=== PATIENT | female | born 1950 | race Caucasian/White ===

== ENCOUNTER 2016-12-02 20:21 | Emergency (ER) | payer MEDICAID ==
[2016-12-02 20:30] VITALS: TEMP 98.2
[2016-12-02] MEDS ORDERED: NS 1,000 ML IV ONE (21:00)
--- NOTE | 2016-12-02 21:04 | EDPHY ---
H & P Time Seen by Provider: 12/02/16 20:54 HPI/ROS: CHIEF COMPLAINT: Abdominal discomfort, diarrhea, facial rash HISTORY OF PRESENT ILLNESS: Patient is a 66-year-old female who presents emergency department with multiple complaints. Last evening she started clindamycin for dental dry socket. On Wednesday at 5:00 a.m. she awoke with significant diarrhea and abdominal cramping. She describes midline abdominal pain from her epigastrium to her umbilicus. It is "burning like" sensation. She has had nausea and multiple episodes of nonbloody vomiting. Today she noticed facial and neck redness. This is not pruritic. No chest pain or shortness of breath. No fever or chills. No dysuria or frequency. REVIEW OF SYSTEMS: My complete review of systems is negative except as mentioned in the HPI. Past Medical/Surgical History: Includes restless leg syndrome Past surgical history: Cataract surgery Social history: Patient occasionally uses marijuana. No tobacco or alcohol Smoking Status: Never smoked Physical Exam: 36.8, 108/68, 90, 18, 93% on room air GENERAL: Well-appearing, in no acute distress, alert. HEENT: Eyes normal to inspection, normal pharynx, no signs of dehydration. NECK: No thyromegaly, no lymphadenopathy, supple. RESPIRATORY: Clear to auscultation bilaterally, no rales, rhonchi or wheezing. CVS: Regular rate and rhythm, no rubs, murmurs, or gallops. ABDOMEN: Soft, nontender, nondistended, no organomegaly. Benign BACK: Normal to inspection, no CVA tenderness. SKIN: Normal color, warm, dry. No pallor. Minimal redness over her bilateral cheeks and anterior neck. No petechiae or hives. EXTREMITIES: No pedal edema, no calf tenderness, no Homans sign or cords, no joint swelling. NEURO/PSYCH: Alert and oriented, normal mood and affect, normal motor sensory exam. No obvious cranial nerve deficit. Constitutional: Initial Vital Signs Temperature (C) 36.8 C 12/02/16 20:27 Heart Rate 90 12/02/16 20:27 Respiratory Rate 18 12/02/16 20:27 Blood Pressure 108/68 12/02/16 20:27 O2 Sat (%) 93 12/02/16 20:27 O2 Delivery Mode Room Air Allergies/Adverse Reactions: No Known Allergies Allergy (Unverified 12/02/16 20:26) Home Medications: Medication Instructions Recorded Clindamycin 12/02/16 Ibuprofen 12/02/16 Ondansetron Odt [Zofran Odt 4 mg 4 mg PO Q4PRN PRN #7 tab 12/02/16 (*)] Ropinirole HCl 12/02/16 Medical Decision Making ED Course/Re-evaluation: In the emergency department I discussed possible etiologies with the patient. I answered all her questions. Patient had a mildly elevated white count. Her potassium is 3.3. Her AST and ALT are mildly elevated. I rechecked the patient. She was feeling better. On repeat exam her abdomen was soft, nontender nondistended. It was completely benign. Her rash had improved. I discussed possible etiologies with the patient. She will be discharged home. She will return to the emergency department with worsening symptoms. She was given warnings prior to leaving. Differential Diagnosis: My differential includes but is not limited to small-bowel obstruction, perforation, pancreatitis, cholecystitis, urinary tract infection, allergic reaction - Data Points Laboratory Results: Laboratory Results 12/02/16 21:10 12/02/16 21:10 12/02/16 12/02/16 21:10 21:10 WBC 13.79 10^3/uL H 10^3/uL (3.80-9.50) RBC 4.92 10^6/uL 10^6/uL (4.18-5.33) Hgb 15.2 g/dL g/dL (12.6-16.3) Hct 43.0 % % (38.0-47.0) MCV 87.4 fL fL (81.5-99.8) MCH 30.9 pg pg (27.9-34.1) MCHC 35.3 g/dL g/dL (32.4-36.7) RDW 11.9 % % (11.5-15.2) Plt Count 277 10^3/uL 10^3/uL (150-400) MPV 10.1 fL fL (8.7-11.7) Neut % (Auto) 80.4 % H % (39.3-74.2) Lymph % (Auto) 12.8 % L % (15.0-45.0) Cloud % (Auto) 5.9 % % (4.5-13.0) Eos % (Auto) 0.1 % L % (0.6-7.6) Baso % (Auto) 0.4 % % (0.3-1.7) Nucleat RBC Rel Count 0.0 % % (0.0-0.2) Absolute Neuts (auto) 11.09 10^3/uL H 10^3/uL (1.70-6.50) Absolute Lymphs (auto) 1.76 10^3/uL 10^3/uL (1.00-3.00) Absolute Monos (auto) 0.81 10^3/uL H 10^3/uL (0.30-0.80) Absolute Eos (auto) 0.02 10^3/uL L 10^3/uL (0.03-0.40) Absolute Basos (auto) 0.05 10^3/uL 10^3/uL (0.02-0.10) Absolute Nucleated RBC 0.00 10^3/uL 10^3/uL (0-0.01) Immature Gran % 0.4 % % (0.0-1.1) Immature Gran # 0.06 10^3/uL 10^3/uL (0.00-0.10) Sodium 135 mEq/L mEq/L (134-144) Potassium 3.3 mEq/L L mEq/L (3.5-5.2) Chloride 101 mEq/L mEq/L (97-110) Carbon Dioxide 22 mEq/l mEq/l (22-31) Anion Gap 12 mEq/L mEq/L (8-16) BUN 18 mg/dL mg/dL (7-23) Creatinine 0.8 mg/dL mg/dL (0.6-1.0) Estimated GFR > 60 Glucose 110 mg/dL H mg/dL (70-100) Calcium 9.7 mg/dL mg/dL (8.5-10.4) Total Bilirubin 0.9 mg/dL mg/dL (0.1-1.4) Conjugated Bilirubin 0.3 mg/dL mg/dL (0.0-0.5) Unconjugated Bilirubin 0.6 mg/dL mg/dL (0.0-1.1) AST 61 IU/L H IU/L (14-46) ALT 199 IU/L H IU/L (9-52) Alkaline Phosphatase 103 IU/L IU/L (38-126) Total Protein 6.8 g/dL g/dL (6.3-8.2) Albumin 4.4 g/dL g/dL (3.5-5.0) Lipase 56.0 IU/L IU/L (23-300) Medications Given: Discontinued Medications Diphenhydramine HCl (Benadryl Injection) 25 mg IVP EDNOW ONE Stop: 12/02/16 21:01 Last Admin: 12/02/16 21:14 Dose: 25 mg Sodium Chloride (Ns) 1,000 mls @ 0 mls/hr IV ONCE ONE; Wide Open PRN Reason: Protocol Stop: 12/02/16 21:01 Last Admin: 12/02/16 21:14 Dose: 1,000 mls Departure - Departure Disposition: Home, Routine, Self-Care Clinical Impression: Rash Abdominal pain Qualifiers: Abdominal location: generalized Qualified Code(s): R10.84 - Generalized abdominal pain Condition: Good Instructions: Acute Rash (ED), Abdominal Pain (ED) Additional Instructions: Return with increasing abdominal pain, nausea, vomiting, worsening rash or any other concerns. Continue to take Benadryl as needed. Referrals: Shan Smart MD [Medical Doctor] - 5-7 days, call for appt. Prescriptions: Ondansetron Odt [Zofran Odt 4 mg (*)] 4 mg PO Q4PRN PRN #7 tab PRN Reason: For Nausea & Vomiting
[2016-12-02 21:20] LABS: % IMMATURE GRANULYOCYTES 0.4 % (0.0-1.1); ABSOLUTE IMMATURE GRANULOCYTES 0.06 10^3/uL (0.00-0.10); ADD DIFF? NO; ADD MORPH? NO; ADD SCAN? NO; ATYPICAL LYMPHOCYTE FLAG 0 (0-99); FRAGMENT RBC FLAG 0 (0-99); HEMOGLOBIN 15.2 g/dL (12.6-16.3); LEFT SHIFT FLG 10 (0-99); LIPEMIA HEMOLYSIS FLAG 90 (0-99); MEAN CELL HEMOGLOBIN 30.9 pg (27.9-34.1); MEAN CELL HEMOGLOBIN CONCENTR. 35.3 g/dL (32.4-36.7); MEAN CELL VOLUME 87.4 fL (81.5-99.8); MEAN PLATELET VOLUME 10.1 fL (8.7-11.7); PLATELET CLUMPS FLAG 0 (0-99); PLATELET COUNT 277 10^3/uL (150-400); RED BLOOD CELL COUNT 4.92 10^6/uL (4.18-5.33); RED CELL DISTRIBUTION WIDTH 11.9 % (11.5-15.2)
[2016-12-02 21:48] LABS: ALANINE AMINOTRANSFERASE 199 IU/L (9-52); ALBUMIN 4.4 g/dL (3.5-5.0); ALKALINE PHOSPHATASE 103 IU/L (38-126); ANION GAP 12 mEq/L (8-16); ASPARTATE AMINOTRANSFERASE 61 IU/L (14-46); BILIRUBIN,TOTAL 0.9 mg/dL (0.1-1.4); BILIRUBIN-CONJUGATED 0.3 mg/dL (0.0-0.5); BILIRUBIN-UNCONJUGATED 0.6 mg/dL (0.0-1.1); CALCIUM 9.7 mg/dL (8.5-10.4); CARBON DIOXIDE 22 mEq/l (22-31); CHLORIDE 101 mEq/L (97-110); CREATININE 0.8 mg/dL (0.6-1.0); GLOMERULAR FILTRATION RATE > 60; GLUCOSE 110 mg/dL (70-100); POTASSIUM 3.3 mEq/L (3.5-5.2); SODIUM 135 mEq/L (134-144); TOTAL PROTEIN 6.8 g/dL (6.3-8.2)
[2016-12-02] MEDS ORDERED: ONDANSETRON 4MG PREPACK#2 BTL TAKEHOME ONE (23:26)
[2016-12-03] MEDS ORDERED: LORazepam 1 MG TAB PO ONE (00:01)
[2016-12-03 06:10] VITALS: BP 123/90; PULSE 75; RESP 16; O2SAT 91
== END 2016-12-03 06:10 | disposition home or self-care (01) ==
DX: R10.84 Generalized abdominal pain (principal); R21 Rash and other nonspecific skin eruption
CPT/HCPCS: 96374; J1200

== ENCOUNTER 2016-12-04 16:33 | Emergency (ER) | payer MEDICAID ==
--- NOTE | 2016-12-04 17:30 | EDPHY ---
H & P Time Seen by Provider: 12/04/16 17:07 HPI/ROS: Chief complaint. Vomiting, diarrhea HPI. 66-year-old female presents emergency department with vomiting diarrhea and crampy B/burning mid abdominal pain. She was seen 2 days ago in the ED for same and had elevated white blood cell count. She has recently been on clindamycin in the past week for dry socket. Now she has had diarrhea and abdominal cramping. Headache and nausea. No fever. Denies chest pain or shortness of breath. She took some Zofran but still has vomited. She notes increased stress and receive some Ativan the other day in the ED which helped her quite a bit. No urinary symptoms. ROS Constitutional. no fever/chills, no weakness Eyes. no problems with vision ENT. no sore throat, no nasal drainage Cardiovascular. no chest pain Respiratory. no shortness of breath, no cough Abdominal. Upper mid abdominal pain with nausea vomiting and diarrhea . no problems urinating MS. no calf pain/swelling, no neck/back pain, no joint pain Skin. no rash Lymph. no swollen glands Neuro. Headache Past Medical/Surgical History: Past medical history significant for restless leg syndrome, cataract surgery, recent dental surgery Social History: Single, nonsmoker, no alcohol Smoking Status: Never smoked Physical Exam: General Appearance: Alert pleasant well-developed female mild distress vital signs stable Eyes: Pupils equal and round no pallor or injection. ENT, Mouth: Mucous membranes are moist. Respiratory: There are no retractions, lungs are clear to auscultation. Cardiovascular: Regular rate and rhythm. Gastrointestinal: Abdomen is with mild tenderness in the epigastrium. No masses. Normal bowel sounds Neurological: Awake and alert, sensory and motor exams grossly normal. Skin: Warm and dry, no rashes. Musculoskeletal: Neck is supple nontender. Extremities symmetrical, full range of motion. Psychiatric: Patient is oriented X 3, there is no agitation. Constitutional: Initial Vital Signs Temperature (C) 36.7 C 12/04/16 16:47 Heart Rate 67 12/04/16 16:47 Respiratory Rate 18 12/04/16 16:47 Blood Pressure 180/89 H 12/04/16 16:47 O2 Sat (%) 96 12/04/16 16:47 O2 Delivery Mode Room Air O2 (L/minute) 2 Allergies/Adverse Reactions: No Known Allergies Allergy (Verified 12/04/16 16:46) Home Medications: Medication Instructions Recorded Ondansetron Odt [Zofran Odt 4 mg 4 mg PO Q4PRN PRN #7 tab 12/02/16 (*)] Medical Decision Making - Diagnostics Imaging Results: Imaging Impressions Abdomen CT 12/04/16 18:27 Impression: 1. 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 2. Sigmoid diverticulosis without definite diverticulitis. 3. See above report for additional findings. Results called and discussed with HEIDY STROUD on 12/04/2016 at 19:21 CT abdomen pelvis with IV contrast reviewed by me and discussed with Dr. Galvez shows likely pelvic congestion syndrome especially on the left with large dilated veins. She has a normal appendix. She has site sigmoid diverticulosis but no evidence for itis. No findings in the upper abdomen where the patient is symptomatic Procedures: IV normal saline. Zofran and Ativan IV ED Course/Re-evaluation: Re-evaluation 6:20 p.m.. Patient is feeling better. She and I discussed labs and continuing elevation of white blood cell count. We discussed CT abdomen and pelvis with IV contrast for further evaluation. She expresses understanding and agreement. It is ordered. Re-evaluation at 8:15 p.m.. Patient is stable. She feels well to go home. She was unable to give us a stool sample. She has no nausea and no headache now. She is offered admission but she feels well to go home. We discussed lab results and treatment plan including criteria for return importance of follow- up and further evaluation. She expresses understanding and agreement Differential Diagnosis: I considered pancreatitis, gastritis. I suspect that the patient's symptoms are due to clindamycin. I have also considered Clostridium difficile as well - Data Points Laboratory Results: Laboratory Results 12/04/16 17:30 12/04/16 17:30 12/04/16 12/04/16 12/04/16 19:20 17:30 17:30 WBC 13.56 10^3/uL H 10^3/uL (3.80-9.50) RBC 5.20 10^6/uL 10^6/uL (4.18-5.33) Hgb 16.1 g/dL g/dL (12.6-16.3) Hct 44.8 % % (38.0-47.0) MCV 86.2 fL fL (81.5-99.8) MCH 31.0 pg pg (27.9-34.1) MCHC 35.9 g/dL g/dL (32.4-36.7) RDW 11.7 % % (11.5-15.2) Plt Count 275 10^3/uL 10^3/uL (150-400) MPV 10.3 fL fL (8.7-11.7) Neut % (Auto) 80.1 % H % (39.3-74.2) Lymph % (Auto) 12.9 % L % (15.0-45.0) [place] % (Auto) 5.8 % % (4.5-13.0) Eos % (Auto) 0.1 % L % (0.6-7.6) Baso % (Auto) 0.6 % % (0.3-1.7) Nucleat RBC Rel Count 0.0 % % (0.0-0.2) Absolute Neuts (auto) 10.87 10^3/uL H 10^3/uL (1.70-6.50) Absolute Lymphs (auto) 1.75 10^3/uL 10^3/uL (1.00-3.00) Absolute Monos (auto) 0.78 10^3/uL 10^3/uL (0.30-0.80) Absolute Eos (auto) 0.01 10^3/uL L 10^3/uL (0.03-0.40) Absolute Basos (auto) 0.08 10^3/uL 10^3/uL (0.02-0.10) Absolute Nucleated RBC 0.00 10^3/uL 10^3/uL (0-0.01) Immature Gran % 0.5 % % (0.0-1.1) Immature Gran # 0.07 10^3/uL 10^3/uL (0.00-0.10) Sodium 137 mEq/L mEq/L (134-144) Potassium 3.2 mEq/L L mEq/L (3.5-5.2) Chloride 102 mEq/L mEq/L (97-110) Carbon Dioxide 20 mEq/l L mEq/l (22-31) Anion Gap 15 mEq/L mEq/L (8-16) BUN 14 mg/dL mg/dL (7-23) Creatinine 0.8 mg/dL mg/dL (0.6-1.0) Estimated GFR > 60 Glucose 115 mg/dL H mg/dL (70-100) Calcium 9.9 mg/dL mg/dL (8.5-10.4) Total Bilirubin 1.0 mg/dL mg/dL (0.1-1.4) Conjugated Bilirubin 0.4 mg/dL mg/dL (0.0-0.5) Unconjugated Bilirubin 0.6 mg/dL mg/dL (0.0-1.1) AST 34 IU/L IU/L (14-46) ALT 128 IU/L H IU/L (9-52) Alkaline Phosphatase 102 IU/L IU/L (38-126) Total Protein 7.0 g/dL g/dL (6.3-8.2) Albumin 4.5 g/dL g/dL (3.5-5.0) Lipase 52.0 IU/L IU/L (23-300) Urine Color YELLOW Urine Appearance CLEAR Urine pH 6.0 (5.0-7.5) Ur Specific [place] 1.019 (1.002-1.030) Urine Protein NEGATIVE (NEGATIVE) Urine Ketones NEGATIVE (NEGATIVE) Urine Blood NEGATIVE (NEGATIVE) Urine Nitrate NEGATIVE (NEGATIVE) Urine Bilirubin NEGATIVE (NEGATIVE) Urine Urobilinogen NEGATIVE EU EU (0.2-1.0) Ur Leukocyte Esterase NEGATIVE (NEGATIVE) Urine Glucose NEGATIVE (NEGATIVE) Medications Given: Discontinued Medications Sodium Chloride (Ns) 1,000 mls @ 0 mls/hr IV ONCE ONE; Wide Open PRN Reason: Protocol Stop: 12/04/16 17:41 Last Admin: 17 17:45 Dose: 1,000 mls Lorazepam (Ativan Injection) 1 mg IVP EDNOW ONE Stop: 12/04/16 17:42 Last Admin: 12/04/16 17:45 Dose: 1 mg Departure - Departure Disposition: Home, Routine, Self-Care Clinical Impression: Abdominal pain Qualifiers: Abdominal location: epigastric Qualified Code(s): R10.13 - Epigastric pain Condition: Good Instructions: Abdominal Pain (ED) Additional Instructions: Frequent, small sips fluids. Gradual diet advancement. Phenergan as needed for nausea. Ativan for anxiety. Gradual diet advancement beginning with yogurt toast and bananas. Return for worsening pain, vomiting or diarrhea. Recheck in 2 days if not improved Referrals: [facility] [Other] - 2-3 days, if not improved
[2016-12-04] MEDS ORDERED: NS 1,000 ML IV ONE (17:40)
[2016-12-04] MEDS ORDERED: LORazepam 2 MG/ML INJ IVP ONE (17:41)
[2016-12-04 17:46] LABS: % IMMATURE GRANULYOCYTES 0.5 % (0.0-1.1); ABSOLUTE IMMATURE GRANULOCYTES 0.07 10^3/uL (0.00-0.10); ADD DIFF? NO; ADD MORPH? NO; ADD SCAN? NO; ATYPICAL LYMPHOCYTE FLAG 0 (0-99); FRAGMENT RBC FLAG 0 (0-99); HEMATOCRIT 44.8 % (38.0-47.0); HEMOGLOBIN 16.1 g/dL (12.6-16.3); LEFT SHIFT FLG 10 (0-99); LIPEMIA HEMOLYSIS FLAG 90 (0-99); MEAN CELL HEMOGLOBIN CONCENTR. 35.9 g/dL (32.4-36.7); MEAN CELL VOLUME 86.2 fL (81.5-99.8); MEAN PLATELET VOLUME 10.3 fL (8.7-11.7); PLATELET CLUMPS FLAG 0 (0-99); PLATELET COUNT 275 10^3/uL (150-400); RED CELL DISTRIBUTION WIDTH 11.7 % (11.5-15.2)
[2016-12-04 18:04] LABS: ALANINE AMINOTRANSFERASE 128 IU/L (9-52); ALBUMIN 4.5 g/dL (3.5-5.0); ALKALINE PHOSPHATASE 102 IU/L (38-126); ANION GAP 15 mEq/L (8-16); ASPARTATE AMINOTRANSFERASE 34 IU/L (14-46); BILIRUBIN-CONJUGATED 0.4 mg/dL (0.0-0.5); BILIRUBIN-UNCONJUGATED 0.6 mg/dL (0.0-1.1); CALCIUM 9.9 mg/dL (8.5-10.4); CARBON DIOXIDE 20 mEq/l (22-31); CHLORIDE 102 mEq/L (97-110); CREATININE 0.8 mg/dL (0.6-1.0); GLOMERULAR FILTRATION RATE > 60; GLUCOSE 115 mg/dL (70-100); POTASSIUM 3.2 mEq/L (3.5-5.2); SODIUM 137 mEq/L (134-144)
[2016-12-04] MEDS ORDERED: IOPAMIDOL (ISOVUE-300) 100 ML BTL ONE (18:36)
[2016-12-04 18:56] VITALS: RESP 20; TEMP 99
[2016-12-04 19:42] LABS: COLOR YELLOW; LEUKOCYTE ESTERASE,URINE NEGATIVE (NEGATIVE); NITRITE,URINE NEGATIVE (NEGATIVE)
[2016-12-04] MEDS ORDERED: POTASSIUM CL 20 MEQ/15 ML UDCUP PO ONE (20:11)
[2016-12-04] MEDS ORDERED: LORAZEPAM 1 MG PREPACK#4 BTL TAKEHOME ONE (20:18)
[2016-12-04] MEDS ORDERED: PROMETHAZINE 25 MG PREPACK #4 BTL TAKEHOME ONE (20:18)
[2016-12-04 20:38] VITALS: BP 153/82; PULSE 70; O2SAT 93
== END 2016-12-04 20:42 | disposition home or self-care (01) ==
DX: R10.13 Epigastric pain (principal)
CPT/HCPCS: 96374; J2060; Q9967